=== PATIENT | female | born 1990 | race Caucasian/White ===

== ENCOUNTER 2024-03-21 20:34 | Emergency (ER) | payer BC, OTHER ==
[2024-03-21 21:33] LABS: BASOPHILS PERCENT AUTO 0.1 % (0.2-1.2); EOSINOPHILS ABSOLUTE AUTO 0.1 x10^3/uL (0.0-0.5); EOSINOPHILS PERCENT AUTO 1.5 % (0.0-4.0); HEMATOCRIT 32.7 % (33.0-47.0); HEMOGLOBIN 11.4 g/dL (12.0-16.0); IMMATURE GRAN ABSOLUTE AUTO 0.01 x10^3/uL (0.00-0.07); LYMPHOCYTES ABSOLUTE AUTO 1.9 x10^3/uL (1.0-4.8); LYMPHOCYTES PERCENT AUTO 26.4 % (25.0-50.0); MEAN CORPUSCULAR HEMOGLOBIN 29.2 pg (26.0-32.0); MEAN CORPUSCULAR HGB CONC 34.9 g/dL (32.0-36.0); MEAN CORPUSCULAR VOLUME 83.8 fL (78.0-93.0); MONOCYTES ABSOLUTE AUTO 0.6 x10^3/uL (0.0-0.8); NEUTROPHILS ABSOLUTE AUTO 4.6 x10^3/uL (1.8-7.7); NEUTROPHILS PERCENT AUTO 63.9 % (50.0-80.0); PLATELET COUNT,PLT 270 x10^3/uL (130-400); WHITE BLOOD CELL COUNT,WBC 7.2 x10^3/uL (4.0-10.0)
== END 2024-03-21 21:53 | disposition home or self-care (01) ==
LOC: VM.ED 20:34
DX: D64.9 Anemia, unspecified (principal)
CPT/HCPCS: 36415; 85025; 93005; 99285